=== PATIENT | male | born 1955 | race Caucasian/White ===

== ENCOUNTER → 2016-02-12 | Outpatient (CLI) | payer OTHER ==
[~2016-02-12] MED LIST: ANAPROX DS550 MG PO; DIAZEPAM2 MG PO; MEDROL DOSEPAK4 MG PO; VICODIN 5/500 505 MG PO
== END | disposition home or self-care (01) ==
LOC: RAD 08:37
DX: K57.30 Diverticulosis of large intestine without perforation or abscess without bleeding (principal); F17.200 Nicotine dependence, unspecified, uncomplicated

== ENCOUNTER 2016-10-27 10:13 | Emergency (ER) | payer OTHER ==
[~2016-10-27] VITALS: Ht 162.5 cm; Wt 72.6 kg
== END 2016-10-27 12:33 | disposition home or self-care (01) ==
LOC: ED 10:13
DX: S63.501A Unspecified sprain of right wrist, initial encounter (principal); S00.90XA Unspecified superficial injury of unspecified part of head, initial encounter; F17.200 Nicotine dependence, unspecified, uncomplicated; W19.XXXA Unspecified fall, initial encounter; Y93.89 Activity, other specified; Y92.9 Unspecified place or not applicable; Y99.9 Unspecified external cause status

== ENCOUNTER → 2019-06-11 | Outpatient (CLI) | payer OTHER | END | disposition home or self-care (01) | LOC: COVID19 13:14 | DX: Z03.818 Encounter for observation for suspected exposure to other biological agents ruled out (principal); Z78.9 Other specified health status ==

== ENCOUNTER → 2020-06-18 | Outpatient (CLI) | payer OTHER | END | disposition home or self-care (01) | LOC: MRI 10:37 | PROVIDERS: ATTEND Physician Assistant | DX: G93.89 Other specified disorders of brain (principal); M54.81 Occipital neuralgia ==

== ENCOUNTER → 2020-06-26 | Day surgery (SDC) | payer OTHER ==
[~2020-06-26] VITALS: Ht 165.1 cm; Wt 68.0 kg
[2020-06-26 07:37] VITALS: BP 145/79
[2020-06-26 08:33] VITALS: BP 125/75
[2020-06-26 08:45] VITALS: BP 132/72
[2020-06-26 09:00] VITALS: BP 138/74
== END | disposition home or self-care (01) ==
LOC: SDC 06-23 08:45
PROVIDERS: ATTEND Surgery
DX: Z12.11 Encounter for screening for malignant neoplasm of colon (principal); D12.2 Benign neoplasm of ascending colon; K57.30 Diverticulosis of large intestine without perforation or abscess without bleeding; F17.210 Nicotine dependence, cigarettes, uncomplicated; Z98.890 Other specified postprocedural states

== ENCOUNTER → 2020-07-03 | Day surgery (SDC) | payer OTHER ==
[~2020-07-03] VITALS: Wt 68.0 kg
[2020-07-03 09:00] VITALS: BP 150/83
[2020-07-03 09:52] VITALS: BP 127/78
[2020-07-03 10:05] VITALS: BP 137/78
[2020-07-03 10:22] VITALS: BP 157/78
== END | disposition home or self-care (01) ==
LOC: SDC 06-30 13:00
PROVIDERS: ATTEND Surgery
DX: M31.6 Other giant cell arteritis (principal); M54.81 Occipital neuralgia; G44.89 Other headache syndrome; J44.9 Chronic obstructive pulmonary disease, unspecified; F17.210 Nicotine dependence, cigarettes, uncomplicated; Z79.899 Other long term (current) drug therapy

== ENCOUNTER → 2020-09-22 | Outpatient (CLI) | payer OTHER | END | disposition home or self-care (01) | LOC: US 06:58 | PROVIDERS: ATTEND Physician Assistant | DX: R09.89 Other specified symptoms and signs involving the circulatory and respiratory systems (principal); I25.10 Atherosclerotic heart disease of native coronary artery without angina pectoris; M54.81 Occipital neuralgia ==

== ENCOUNTER 2020-09-26 23:10 | Emergency (ER) | payer OTHER ==
[~2020-09-26] VITALS: Ht 162.5 cm; Wt 68.0 kg
[2020-09-27 00:39] LABS: BASO % 0.4 % (0.0-1.0); EOS # 0.1 10*3/uL (0.0-0.4); HEMATOCRIT 38.2 % (42.0-52.0); LYMPH % 11.9 % (27.0-41.0); MEAN CORPUSCULAR HGB 32.7 pg (27.0-31.0); MEAN CORPUSCULAR HGB CONC 33.8 g/dl (33.0-37.0); MEAN PLATELET VOLUME 9.4 fl (9.6-12.3); MONO # 0.8 10*3/uL (0.1-1.0); MONO % 9.9 % (3.0-9.0); NEUT # 6.3 10*3/uL (2.3-7.9); NEUT % 76.3 % (47.0-73.0); PLATELET COUNT AUTOMATED 141 10*3/uL (130-400); RED BLOOD COUNT 3.94 10*6/uL (4.50-5.90); RED CELL DISTRI WIDTH 12.1 % (0-14.5); WHITE BLOOD COUNT 8.2 10*3/uL (4.8-10.8)
[2020-09-27 00:56] LABS: ALBUMIN 3.5 gm/dl (3.1-4.5); ALKALINE PHOSPHATASE 102 U/L (45-117); BUN 15 mg/dl (7-24); CHLORIDE 106 mmol/L (98-107); CREATININE 0.79 mg/dL (0.70-1.30); POTASSIUM 3.6 mmol/L (3.5-5.1); SGOT/AST 23 IU/L (3-35); SGPT/ALT 20 U/L (12-78); SODIUM 136 mmol/L (136-145); TOTAL PROTEIN 7.6 gm/dL (6.4-8.2)
[2020-09-27 00:57] LABS: TROPONIN I < 0.015 ng/ml (<0.045)
== END 2020-09-27 03:35 | disposition home or self-care (01) ==
LOC: ED 23:10
PROVIDERS: Emergency Medicine
DX: R42 Dizziness and giddiness (principal); R51.9 Headache, unspecified; E78.00 Pure hypercholesterolemia, unspecified

== ENCOUNTER → 2020-11-03 | Outpatient (CLI) | payer OTHER | END | disposition home or self-care (01) | LOC: COVID19 16:08 | PROVIDERS: ATTEND Internal Medicine | DX: Z11.52 Encounter for screening for COVID-19 (principal) ==

== ENCOUNTER → 2021-04-20 | Outpatient (CLI) | payer OTHER | END | disposition home or self-care (01) | LOC: US 06:53 | PROVIDERS: ATTEND Physician Assistant | DX: R22.1 Localized swelling, mass and lump, neck (principal) ==

== ENCOUNTER → 2021-05-07 | Outpatient (CLI) | payer OTHER | END | disposition home or self-care (01) | LOC: CT 07:33 | PROVIDERS: ATTEND Physician Assistant | DX: R22.1 Localized swelling, mass and lump, neck (principal); J43.9 Emphysema, unspecified ==

== ENCOUNTER → 2021-05-26 | Outpatient (CLI) | payer OTHER | END | disposition home or self-care (01) | LOC: RAD 13:27 | PROVIDERS: ATTEND Physician Assistant | DX: D49.0 Neoplasm of unspecified behavior of digestive system (principal) ==

== ENCOUNTER → 2021-07-20 | Outpatient (CLI) | payer OTHER | END | disposition home or self-care (01) | LOC: CT 09:03 | PROVIDERS: ATTEND Physician Assistant Surgical | DX: C10.8 Malignant neoplasm of overlapping sites of oropharynx (principal); J43.9 Emphysema, unspecified; I65.23 Occlusion and stenosis of bilateral carotid arteries ==

== ENCOUNTER → 2021-11-10 | Outpatient (CLI) | payer OTHER | END | disposition home or self-care (01) | LOC: CT 09:00 | PROVIDERS: ATTEND Physician Assistant | DX: K57.32 Diverticulitis of large intestine without perforation or abscess without bleeding (principal); K44.9 Diaphragmatic hernia without obstruction or gangrene; J44.9 Chronic obstructive pulmonary disease, unspecified; J84.10 Pulmonary fibrosis, unspecified; K46.9 Unspecified abdominal hernia without obstruction or gangrene; L92.8 Other granulomatous disorders of the skin and subcutaneous tissue; K76.9 Liver disease, unspecified; C76.0 Malignant neoplasm of head, face and neck ==

== ENCOUNTER 2022-08-03 13:56 | Emergency (ER) | payer MEDICARE, MEDICAID ==
[~2022-08-03] VITALS: Ht 162.5 cm; Wt 67.1 kg
[~2022-08-03 13:56] MED LIST changes: +ASPIRIN ADULT L81 M2 PO; +CLOPIDOGREL75 MG PO; +CRESTOR5 M1 PO; +INDOMETHACIN50 MG PO; +LEVOFLOXACIN750 M2 PO; +NATURE'S BLEND F1 MG PO
[2022-08-03 14:26] LABS: BASO % 0.2 % (0.0-1.0); EOS # 0.1 10*3/uL (0.0-0.4); HEMATOCRIT 38.5 % (42.0-52.0); LYMPH # 0.5 10*3/uL (1.3-4.4); LYMPH % 8.7 % (27.0-41.0); MEAN CELL VOLUME 94.4 fl (80.0-94.0); MEAN CORPUSCULAR HGB 31.9 pg (27.0-31.0); MEAN CORPUSCULAR HGB CONC 33.8 g/dl (33.0-37.0); MEAN PLATELET VOLUME 8.6 fl (9.6-12.3); MONO # 0.4 10*3/uL (0.1-1.0); MONO % 6.9 % (3.0-9.0); NEUT # 4.9 10*3/uL (2.3-7.9); NEUT % 81.9 % (47.0-73.0); PLATELET COUNT AUTOMATED 104 10*3/uL (130-400); RED BLOOD COUNT 4.08 10*6/uL (4.50-5.90); RED CELL DISTRI WIDTH 13.2 % (0-14.5)
[2022-08-03 14:38] LABS: ACT PARTIAL THROMBO TIME 27.3 SECONDS (20.0-32.1); INTERNATIONAL NORM RATIO 1.2 (2.0-3.5)
[2022-08-03 14:49] LABS: ALKALINE PHOSPHATASE 120 U/L (46-116); BUN 38 mg/dl (9-23); CHLORIDE 104 mmol/L (98-107); POTASSIUM 4.6 mmol/L (3.4-5.1); SGPT/ALT 19 U/L (10-49); TOTAL PROTEIN 7.3 gm/dL (6.0-8.0)
[2022-08-03] MEDS ORDERED: PROVENTIL HFA6.7 GM INH (15:57)
== END 2022-08-03 16:22 | disposition home or self-care (01) ==
LOC: ED 13:56
PROVIDERS: Nurse Practitioner Family
DX: J44.1 Chronic obstructive pulmonary disease with (acute) exacerbation (principal); Z98.890 Other specified postprocedural states; Z87.891 Personal history of nicotine dependence

== ENCOUNTER → 2022-12-09 | Outpatient (CLI) | payer MEDICARE, MEDICAID ==
[~2022-12-09] MED LIST changes: +BREZTRI AEROS10.7 GM INH; -CRESTOR5 M1 PO; +DOXYCYCLINE HY100 M3 PO; +OXYGEN NAS; +PREDNISONE10 MG PO; +PROVENTIL HFA6.7 GM INH; +ROSUVASTATIN CA20 MG PO
[2022-12-09 11:34] LABS: TOTAL PROTEIN 6.4 gm/dL (6.0-8.0)
== END | disposition home or self-care (01) ==
LOC: LAB 10:40
PROVIDERS: ATTEND Internal Medicine Critical Care Medicine
DX: J84.112 Idiopathic pulmonary fibrosis (principal); R91.1 Solitary pulmonary nodule; J45.20 Mild intermittent asthma, uncomplicated; Z87.891 Personal history of nicotine dependence; Z85.810 Personal history of malignant neoplasm of tongue

== ENCOUNTER 2023-04-25 16:07 | Emergency (ER) | payer OTHER ==
[~2023-04-25] VITALS: Ht 162.5 cm; Wt 56.7 kg
[~2023-04-25 16:07] MED LIST changes: +ALBUTEROL2.5 MG/0.5 INH; +ANORO ELLIPTA1 EACH INH; +CARAFATE1 G1 PO; +K-TAB20 MEQ PO; +LASIX20 MG PO; +LIPITOR40 MG PO; +MIRALAX POWDER17 G1 PO; +MUCUS RELIEF600 MG PO; +OFEV100 MG PO; +PROTONIX40 MG PO; +XANAX0.25 MG PO
[2023-04-25 17:40] LABS: EOS % 0.6 % (1.0-4.0); HEMATOCRIT 37.2 % (42.0-52.0); LYMPH # 0.4 10*3/uL (1.3-4.4); LYMPH % 6.5 % (27.0-41.0); MEAN CELL VOLUME 94.7 fl (80.0-94.0); MEAN CORPUSCULAR HGB 29.3 pg (27.0-31.0); MEAN CORPUSCULAR HGB CONC 30.9 g/dl (33.0-37.0); MEAN PLATELET VOLUME 9.6 fl (9.6-12.3); MONO # 0.5 10*3/uL (0.1-1.0); MONO % 10.1 % (3.0-9.0); NEUT # 4.4 10*3/uL (2.3-7.9); NEUT % 82.2 % (47.0-73.0); PLATELET COUNT AUTOMATED 125 10*3/uL (130-400); RED BLOOD COUNT 3.93 10*6/uL (4.50-5.90); RED CELL DISTRI WIDTH 15.4 % (0-14.5); WHITE BLOOD COUNT 5.4 10*3/uL (4.8-10.8)
[2023-04-25 17:44] LABS: ACT PARTIAL THROMBO TIME 32.5 SECONDS (20.0-32.1)
[2023-04-25 17:55] LABS: ALKALINE PHOSPHATASE 155 U/L (46-116); BUN 13 mg/dl (9-23); CHLORIDE 100 mmol/L (98-107); POTASSIUM 3.5 mmol/L (3.4-5.1); SGPT/ALT 46 U/L (5-49); TOTAL PROTEIN 6.8 gm/dL (6.0-8.0)
[2023-04-25] MEDS ORDERED: SODIUM CHLORIDE 0.9% 100 ML BAG IV ONE (18:30)
[2023-04-25] MEDS ORDERED: IOHEXOL 350 MG/ML 100 ML VIAL IV ONE (18:30)
[2023-04-25] MEDS ORDERED: HYDROmorphONE Hydrochloride 0.5 MG/0.5 ML SYRINGE IV ONE (19:30)
[2023-04-25] MEDS ORDERED: PREDNISONE20 M1 PO (20:13)
[2023-04-25] MEDS ORDERED: AVPAK AZITHROM250 M1 PO (20:13)
[2023-04-25] MEDS ORDERED: AZITHROMYCIN 250 MG TAB PO ONE (20:15)
[2023-04-25] MEDS ORDERED: methylPREDNISolone sod succ 125 MG VIAL IV ONE (20:15)
== END 2023-04-25 20:57 | disposition home or self-care (01) ==
LOC: ED 16:07
PROVIDERS: Nurse Practitioner Family
DX: R91.8 Other nonspecific abnormal finding of lung field (principal); J44.1 Chronic obstructive pulmonary disease with (acute) exacerbation; R07.89 Other chest pain; R73.9 Hyperglycemia, unspecified; D64.9 Anemia, unspecified; E78.5 Hyperlipidemia, unspecified; Z98.890 Other specified postprocedural states; Z90.49 Acquired absence of other specified parts of digestive tract; Z87.891 Personal history of nicotine dependence